=== PATIENT | male | born 2000 | race Caucasian/White ===

== ENCOUNTER 2019-04-02 09:32 | Emergency (ER) | payer OTHER ==
[~2019-04-02] VITALS: Ht 177.8 cm; Wt 85.6 kg
[2019-04-02 09:32] VITALS: BP 135/75
[2019-04-02] MEDS ORDERED: PRED10TA2 PO (10:18)
== END 2019-04-02 10:38 | disposition home or self-care (01) ==
LOC: M ED 09:32
DX: T78.40XA Allergy, unspecified, initial encounter (principal); L29.9 Pruritus, unspecified

== ENCOUNTER 2019-11-12 15:23 | Emergency (ER) | payer OTHER ==
[~2019-11-12] VITALS: Ht 177.8 cm; Wt 80.4 kg
[~2019-11-12 15:23] MED LIST: PRED10TA2 PO
[2019-11-12] MEDS ORDERED: ACETAMINOPHEN TAB 650MG DOSE (2X325MG) PO ONE (15:45)
[2019-11-12] MEDS ORDERED: NS 1,000 ML IV ONE ×2 (15:45→18:15)
[2019-11-12] MEDS ORDERED: ONDANSETRON 4MG/2ML VIAL IV ONE (15:45)
[2019-11-12] MEDS ORDERED: NON-325T5 PO (16:28)
[2019-11-12 16:38] LABS: BASO % 0.2 % (0.0-1.0); HEMATOCRIT 42.8 % (42.0-52.0); HEMOGLOBIN 14.7 g/dl (13.5-17.5); LYMPH # 0.5 10^3/uL (1.5-5.0); LYMPH % 5.2 % (24.0-44.0); MEAN CORPUSCULAR HEMOGLOBIN 28.1 pg (27.0-33.0); MEAN CORPUSCULAR HGB CONC 34.3 g/dl (32.0-36.5); MEAN CORPUSCULAR VOLUME 81.8 fl (80.0-96.0); MONO # 0.8 10^3/uL (0.0-0.8); MONO % 7.2 % (0.0-5.0); NEUTROPHILS # 9.1 10^3/uL (1.5-8.5); NEUTROPHILS % 86.7 % (36.0-66.0); PLATELET COUNT, AUTOMATED 150 10^3/uL (150-450); RED BLOOD COUNT 5.23 10^6/uL (4.30-6.10); WHITE BLOOD COUNT 10.4 10^3/uL (4.0-10.0)
[2019-11-12 17:10] LABS: ALBUMIN 4.2 GM/DL (3.2-5.2); ALT/SGPT 27 U/L (12-78); BILIRUBIN,DIRECT 0.4 MG/DL (0.0-0.2); BILIRUBIN,TOTAL 1.1 MG/DL (0.2-1.0); BLOOD UREA NITROGEN 16 MG/DL (7-18); CARBON DIOXIDE LEVEL 25 MEQ/L (21-32); CHLORIDE LEVEL 106 MEQ/L (98-107); CREATININE FOR GFR 1.05 MG/DL (0.70-1.30); GLOMERULAR FILTRATION RATE > 60.0 (>60); GLUCOSE, FASTING 93 MG/DL (70-100); LIPASE 52 U/L (73-393); POTASSIUM SERUM 3.2 MEQ/L (3.5-5.1); SODIUM LEVEL 138 MEQ/L (136-145); TOTAL PROTEIN 7.8 GM/DL (6.4-8.2)
[2019-11-12] MEDS ORDERED: IBUPROFEN 600MG TAB PO ONE (17:15)
[2019-11-12] MEDS ORDERED: POTASSIUM CHLORIDE 10 MEQ SR TABLET PO ONE (17:15)
--- NOTE | 2019-11-12 18:13 | REPVR ---
PROCEDURE INFORMATION: Exam: XR Chest, 2 Views Exam date and time: 11/12/2019 5:39 PM Age: 19 years old Clinical indication: Fever TECHNIQUE: Imaging protocol: XR of the chest Views: 2 views. COMPARISON: No relevant prior studies available. FINDINGS: Lungs: Unremarkable. No consolidation. Pleural space: Unremarkable. No pleural effusion. No pneumothorax. Heart/Mediastinum: Unremarkable. No cardiomegaly. Bones/joints: Unremarkable. IMPRESSION: No acute findings. Electronically signed by: Gabi Henderson On 11/12/2019 18:12:28 PM
[2019-11-12 18:22] VITALS: BP 117/67
[2019-11-12] MEDS ORDERED: AMOX500C PO (18:34)
[2019-11-12] MEDS ORDERED: AMOXICILLIN 500 MG CAP PO ONE (18:45)
== END 2019-11-12 18:48 | disposition home or self-care (01) ==
LOC: M ED 15:23
DX: J02.0 Streptococcal pharyngitis (principal)
CPT/HCPCS: 71046; 80048; 80076; 81001; 83690; 85025; 87040; 87486; 87581; 87633; 87798; 87880; 93041; 96361; 96374; 99284; J2405